=== PATIENT | male | born 1985 | race Caucasian/White ===

== ENCOUNTER 2021-03-20 10:38 | Emergency (ER) | payer OTHER ==
[~2021-03-20] VITALS: Ht 172.7 cm; Wt 90.7 kg
[2021-03-20 10:45] VITALS: BP 145/91
--- NOTE | 2021-03-20 10:53 | NUR ---
WOUND CLEANING DONE BY TIME STUDY STATISTICIAN.
[2021-03-20] MEDS ORDERED: TDAP [DIPH/PERTUSSIS/TET] 0.5 ML VIAL IM ONE ×2 (11:19→11:30)
--- NOTE | 2021-03-20 11:28 | NUR ---
Patient discharged to home in stable condition. Written and verbal after care instructions given. Patient verbalizes understanding of instruction.
[2021-03-20] MEDS ORDERED: AMOX-430 PO (11:33)
== END 2021-03-20 11:39 | disposition home or self-care (01) ==
LOC: ER 10:45
DX: S61.411A Laceration without foreign body of right hand, initial encounter (principal); W54.0XXA Bitten by dog, initial encounter; Y93.89 Activity, other specified; Y92.89 Other specified places as the place of occurrence of the external cause; Y99.8 Other external cause status
CPT/HCPCS: 90471; 90715; 99283; A6403